=== PATIENT | male | born 1950 | race Caucasian/White ===

== ENCOUNTER 2017-05-03 17:05 | Emergency (ER) | payer BC, MEDICARE ==
[2017-05-03] MEDS ORDERED: HYDROcodone/ACETAMIN 5-325 MG* 1 TAB PO ONE ×3 (17:32→20:25)
--- NOTE | 2017-05-03 17:52 | ED ---
Lower Extremity - HPI Summary HPI Summary: Patient NANDO after right ankle eversion injury while hiking this afternoon. He notes to immediate pain at 8/10, throbbing and does not radiate. Endorses some numbness/tingling. There is ecchymosos throughout the medial ankle with deformity noted. He is unable to move the ankle. Denies pain in the knee or down in to the foot. Health history if non-contributory, denies blood thinners , denies previous injury to the ankle. Denies hitting his head or LOC. Thorough physical exam was performed, focusing on ankle special tests. Pain on palpation over medial aspect and superior aspect of ankle. No pain on palpation over lateral side. Due to patient pain around injury, physical exam was limited. Unable to perform anterior drawer test or talar tilt test d/t pain. Unable to perform Win test, but achilles feels intact and without tenderness. Limited ROM. Dorsiflexion, great toe extension and plantar flexion intact however limited. No pain on palpation over medial or lateral lower extremity. No pain with knee flexion. Pulses intact bilaterally. No temperature change or pallor noted bilaterally. Ecchymosis and swelling noted on medial aspect. No lesion or disruption of skin is seen. Unable to bear weight. Pulses +2 bilaterally and cap refill < 2 sec - History of Current Complaint Chief Complaint: EDExtremityLower Stated Complaint: FALL/RT ANKLE INJURY Time Seen by Provider: 05/03/17 17:14 Hx Obtained From: Patient Mechanism Of Injury: Twisted Onset of Pain: Immediate Onset/Duration: Minutes Severity Initially: Moderate Severity Currently: Moderate Pain Intensity: 5 Pain Scale Used: 0-10 Numeric Timing: Constant Location: Is Discrete @ - right ankle - medial Associated Signs And Symptoms: Positive: Swelling, Redness, Bruising Alleviating Factor(s): Rest Able to Bear Weight: No - Risk Factors Gout Risk Factors: Age Over 40, Male DVT Risk Factors: Negative Septic Arthritis Risk Factor: Negative - Allergies/Home Medications Allergies/Adverse Reactions: Allergies Allergy/AdvReac Type Severity Reaction Status Date / Time No Known Allergies Allergy Verified 05/05/17 10:03 PMH/Surg Hx/FS Hx/Imm Hx Previously Healthy: Yes - Immunization History Hx Pertussis Vaccination: No Immunizations Up to Date: Unable to Obtain/Confirm Infectious Disease History: No Infectious Disease History: Denies: Traveled Outside the [place] in Last 30 Days - Social History Occupation: Employed Full-time Lives: With Family Alcohol Use: Daily Alcohol Amount: couple glasses of wine Hx Substance Use: Yes Substance Use Type: Reports: Marijuana Hx Tobacco Use: No Smoking Status (MU): Never Smoked Tobacco Review of Systems Constitutional: Negative ENT: Negative Cardiovascular: Negative Respiratory: Negative Positive: no symptoms reported, see HPI Positive: Arthralgia - right ankle pain with ecchymosis and swelling Positive: Bruising Neurological: Negative Psychological: Normal All Other Systems Reviewed And Are Negative: Yes Physical Exam Triage Information Reviewed: Yes Vital Signs On Initial Exam: Initial Vitals Temp Pulse Resp BP Pulse Ox 98.7 F 64 16 175/96 100 05/03/17 17:11 05/03/17 17:11 05/03/17 17:11 05/03/17 17:11 05/03/17 17:11 Vital Signs Reviewed: Yes Appearance: Positive: Well-Appearing, Well-Nourished Skin: Positive: Warm, Skin Color Reflects Adequate Perfusion, Other - ecchymosis noted over the medial side of the right ankle Head/Face: Positive: Normal Head/Face Inspection Eyes: Positive: EOMI, ELIDA, Conjunctiva Clear Neck: Positive: Supple, No Lymphadenopathy Respiratory/Lung Sounds: Positive: Clear to Auscultation, Breath Sounds Present Cardiovascular: Positive: Normal, RRR, Pulses are Symmetrical in both Upper and Lower Extremities Musculoskeletal: Positive: Pain @ - right ankle pain without ROM. Negative: Heber Sign Left, Heber Sign Right Diagnostics - Vital Signs Vital Signs Temp Pulse Resp BP Pulse Ox 05/03/17 17:11 98.7 F 64 16 175/96 100 - Laboratory Lab Statement: Any lab studies that have been ordered have been reviewed, and results considered in the medical decision making process. Lower Extremity Course/Dx - Course Course Of Treatment: Based on [place] [facility] Rules, patient sent to imaging. Xray negative for fracture or other acute findings. Soft tissue swelling noted over the lateral aspect of the ankle. Medial and lateral distal lower extremity without pain and x-rays show no widening of the ankle joint regarding low suspicion for Maisonneuve fx. Patient given 2 NORCO in the ED for pain relief. Dr. Cintron made aware and agrees to see patient. The ankle was reduced by dr. cintron and placed in a splint. he is to follow up in 2- [address] cintron. Given oxycodone at home for pain control. He is given crutches and OK for discharge. - Diagnoses Differential Diagnosis/HQI/PQRI: Positive: Fracture (Closed), Fracture (Open), Puncture Wound Provider Diagnoses: Ankle fracture - Physician Notifications Instructed by Provider To: Will See In ED - dr. cintron Discharge - Discharge Plan Condition: Stable Disposition: HOME Prescriptions: oxyCODONE/Acetamin 10/325(NF) [Percocet 10/325 (NF)] 1 tab PO Q6H #16 tab MDD 4 Patient Education Materials: Ankle Fracture (ED) Referrals: Chirag Cintron MD [Medical Doctor] - No Primary Care Phys,NOPCP [Primary Care Provider] - Additional Instructions: Follow up with Dr Cintron Call office tomorrow for appt. you will need to be seen in 4-5 days Percoset given for pain management. If you develop worsening symptoms such as tightness, numbness or tingling or worsening symptoms, return to the ED immediately.
--- NOTE | 2017-05-03 18:17 | RAD ---
Indication: Right ankle injury 3 views of the right ankle demonstrates fracture of the distal fibula with lateral subluxation of the talus and widening of the medial ankle mortise. There is likely a posterior malleolus fracture as well. IMPRESSION: Lateral subluxation of the talus with spiral fracture distal fibula and likely fracture of the posterior malleolus.
[2017-05-03] MEDS ORDERED: Lidocaine 2% 10 ML* VIAL INJ ONE (19:48)
[2017-05-03] MEDS ORDERED: Lidocaine 1% INJ* 10 MG/ML 30 ML SDV ONE (19:52)
--- NOTE | 2017-05-03 20:59 | RAD ---
Indication: Right ankle fracture traumatic. 3 views of the right ankle demonstrates reduction of the previously identified lateral subluxation of the talus. There is reduction of the size of the medial mortise although it is still widened. IMPRESSION: Partial reduction lateral subluxation of the talus.
[2017-05-03 21:08] VITALS: BP 164/93
--- NOTE | 2017-05-03 22:07 | CONS ---
CONSULTATION REPORT: DATE OF CONSULT: 05/03/17 - EMERGENCY DEPT HISTORY OF PRESENT ILLNESS: Phil is a healthy 66-year-old who was hiking with his brother this afternoon when he fell down on an embankment at [facility]. He was rescued by the mulling machine operator and brought in with a closed right tibial fibular fracture dislocation of the right ankle. On examination, he has an intact skin envelope, but some swelling around the ankle with prominence of the medial malleolus. He has a dorsal pulse and insensate foot. His x-ray shows a shifted Wasserman B with 2 cm medial clear space widening. With his consent and under sterile conditions, I injected 5 cc of 1% lidocaine into the ankle and then performed a closed reduction and splinted. He is going to follow up in the orthopedic office in 3 to 4 days. He will need an ORIF, he will be on crutches and pain medication. [id number]/CPS #: [id number] ARDEN
== END 2017-05-03 21:10 | disposition home or self-care (01) ==
LOC: ED 17:05
DX: S82.891A Other fracture of right lower leg, initial encounter for closed fracture (principal); W19.XXXA Unspecified fall, initial encounter; Y93.9 Activity, unspecified; Y92.9 Unspecified place or not applicable
CPT/HCPCS: 96374; 99283; J2001

== ENCOUNTER 2017-05-06 11:55 | Day surgery (SDC) | payer BC, MEDICARE ==
[~2017-05-06 11:55] MED LIST: Buffered Lidocaine 0.9% SYRIN* 5 ML/SYR SYRINGE INTRADERM ONE; Bupivacaine 0.5% SDV PF* 30 ML VIAL ONE; Famotidine IV* 10 MG/ML 2 ML (20 mg) IV ONE; Famotidine IV* 10 MG/ML 2 ML (20 mg) ONE; Morphine INJ* 2 MG/ML 1 ML SYRINGE IV PRN; PROCHLORPERAZINE INJ 5 MG/ML 2 ML VIAL IV PRN; ceFAZolin 2 GM PREMIX (*) 50 ML IVPB ONE; fentaNYL* 50 MCG/ML 2 ML VIAL (100 MCG VIAL) IV PRN; oxyCODONE/Acetamin 5/325 MG* TAB PO PRN
[2017-05-06] MEDS ORDERED: fentaNYL* 50 MCG/ML 2 ML VIAL (100 MCG VIAL) ONE ×2 (13:00→14:49)
[2017-05-06] MEDS ORDERED: Chloroprocaine 2%* 20 ML VIAL ONE (13:00)
[2017-05-06] MEDS ORDERED: Midazolam* 1 MG/ML 2 ML VIAL (2 MG) ONE ×2 (13:00→13:10)
[2017-05-06] MEDS ORDERED: Propofol* 10 MG/ML 20 ML BTL IV PUSH ONE (13:29)
[2017-05-06] MEDS ORDERED: Ketorolac INJ* 30 MG/ML 1 ML VIAL ONE (13:29)
[2017-05-06] MEDS ORDERED: Lidocaine 2% PF * 5 ML VIAL ONE (13:29)
--- NOTE | 2017-05-06 14:15 | RAD ---
HISTORY: Right ankle fracture, trauma COMPARISONS: May 03, 2017 VIEWS: 1, frontal oblique view of the right ankle FINDINGS: BONE DENSITY: Normal. BONES: The patient is status post internal fixation of the distal fibula. There is no hardware failure or osteolysis. JOINTS: There is no arthropathy. ALIGNMENT: There is no dislocation. SOFT TISSUES: Unremarkable. OTHER FINDINGS: None. IMPRESSION: LIMITED SINGLE FRONTAL OBLIQUE VIEW OF THE RIGHT ANKLE DEMONSTRATES DISTAL RIGHT FIBULAR INTERNAL FIXATION
[2017-05-06] MEDS ORDERED: oxyCODONE/Acetamin 5/325 MG* TAB ONE (14:49)
[2017-05-06 15:17] VITALS: BP 161/80
--- NOTE | 2017-05-07 04:20 | OP ---
DATE OF OPERATION: 05/06/17 HEALTH SYSTEM DATE OF : 48 SURGEON: Chirag Houston MD BUTTER FAT TESTER: Charity Edwards PA-C ANESTHESIOLOGIST: Floyd Kilgore MD ANESTHESIA: Spinal PRE-OP DIAGNOSIS: Right fibular fracture, displaced Wasserman B. POST-OP DIAGNOSIS: Right fibular fracture, displaced Wasserman B. OPERATIVE PROCEDURE: Open reduction internal fixation, right fibula. DESCRIPTION OF PROCEDURE: The patient was taken to the operating room. Longitudinal incision made over the lateral malleolus approximately 10 cm. We isolated the oblique fracture and reduced this with a crab claw clamp and then fashioned one third tubular plate 8-hole along the posterolateral fibular side. Back to front cortical screws were placed to stabilize the fracture and the plate. Oblique flat plate x-ray intraoperatively showed satisfactory position of the hardware and the mortise. We then irrigated thoroughly, closing with 2- 0 Vicryl and patrica, and a compression dressing plaster splint applied. [id number] #: [id number] MTDD
== END 2017-05-06 16:25 | disposition home or self-care (01) ==
LOC: OR 11:55
PROVIDERS: ATTEND Orthopaedic Surgery
DX: S82.61XA Displaced fracture of lateral malleolus of right fibula, initial encounter for closed fracture (principal); I10 Essential (primary) hypertension; K21.9 Gastro-esophageal reflux disease without esophagitis; W19.XXXA Unspecified fall, initial encounter; Y93.01 Activity, walking, marching and hiking; Y92.89 Other specified places as the place of occurrence of the external cause
CPT/HCPCS: A9270-GY; C1713; C1776; J0690; J1885; J2250; J2400; J2704; J3010

== ENCOUNTER 2017-10-05 09:47 | Day surgery (SDC) | payer MEDICARE, BC ==
[~2017-10-05 09:47] MED LIST changes: +Acetaminophen TAB* 325 MG PO PRN; -Bupivacaine 0.5% SDV PF* 30 ML VIAL ONE; -Famotidine IV* 10 MG/ML 2 ML (20 mg) IV ONE; -Famotidine IV* 10 MG/ML 2 ML (20 mg) ONE; -Morphine INJ* 2 MG/ML 1 ML SYRINGE IV PRN; -PROCHLORPERAZINE INJ 5 MG/ML 2 ML VIAL IV PRN; -ceFAZolin 2 GM PREMIX (*) 50 ML IVPB ONE; -fentaNYL* 50 MCG/ML 2 ML VIAL (100 MCG VIAL) IV PRN; -oxyCODONE/Acetamin 5/325 MG* TAB PO PRN
[2017-10-05] MEDS ORDERED: Midazolam* 1 MG/ML 2 ML VIAL (2 MG) ONE ×2 (10:49→11:25)
[2017-10-05] MEDS ORDERED: fentaNYL* 50 MCG/ML 2 ML VIAL (100 MCG VIAL) ONE (10:49)
[2017-10-05] MEDS ORDERED: Tetracaine 0.5% OPTH.SOL 4 ML* 1 DROP BTL ONE (11:39)
[2017-10-05] MEDS ORDERED: Phenylephrine 2.5% OPTH.SOL* 2 ML BTL ONE (11:39)
[2017-10-05] MEDS ORDERED: Tropicamide 1% OPTH.SOL* BTL ONE (11:39)
[2017-10-05] MEDS ORDERED: Neomycin/Polymy/Dex OPHTH.OIN* 3.5 GM ONE (11:39)
[2017-10-05] MEDS ORDERED: Lidocaine 1% MPF* 2 ML VIAL ONE (11:39)
[2017-10-05] MEDS ORDERED: Ketorolac 0.5% OPHTH (NF) 0.5 % 5 ML BTL ONE (11:39)
[2017-10-05] MEDS ORDERED: Cyclopentolate 1% OPTH.SOL* 2 ML BTL ONE (11:39)
[2017-10-05 12:18] VITALS: BP 189/85
--- NOTE | 2017-10-06 00:42 | OP ---
DATE OF OPERATION: 10/05/17 - [facility] DATE OF : 48 SURGEON: Jim Fatima MD SMASH HAND: None. ANESTHESIA: Topical with intravenous sedation. PRE-OP DIAGNOSIS: Cataract, left eye with glaucoma. POST-OP DIAGNOSIS: Cataract, left eye with glaucoma. OPERATIVE PROCEDURE: Phacoemulsification and cataract extraction with posterior chamber intraocular implant and iStent implant, left eye. COMPLICATIONS: None. BLOOD LOSS: None. DESCRIPTION OF PROCEDURE: The patient was brought to the operating room and received a small amount of intravenous sedation. A drop of Tetracaine was placed in his left eye. He was prepped and draped in the usual sterile fashion for ophthalmic surgery and attention was directed to the left eye where a speculum was placed. A paracentesis was created at the 5 o'clock position and 0.1 cc of 1% preservative- free Lidocaine was injected into the anterior chamber followed by DisCoVisc. The eye was digitally stabilized while a 2.75 mm keratome was used to create a triplanar clear corneal incision at the 3 o'clock position. A continuous curvilinear capsulorrhexis was created with a cystotome and Utrata forceps. BSS on a cannula was used to hydrodissect the lens from the capsule. Phacoemulsification was performed in a [id number] technique to create 4 fragments, which were removed. Residual cortical material was removed with irrigation and aspiration. DisCoVisc was used to inflate the capsular bag. An [id number] 23.0 diopter lens was folded and inserted into the capsular bag. DisCoVisc was used deepen the anterior chamber and coat the corneal epithelium. The patient had rotated away from the surgeon and the microscope was rotated towards the surgeon. A gonioprism was placed on the surface of the eye. Under direct visualization, an iStent was placed into the eye and inserted into the nasal trabecular meshwork. The iStent mill representative was removed. The gonioprism was removed. The patient's head and the microscope were returned to a neutral position. Irrigation and aspiration was performed to remove all viscoelastic from the eye. BSS on a cannula was used to hydrate the corneal stroma and seal the wound. At the end of the case, the pupil was round. The lens was centered and stable. The iStent was in good position. The eye pressure appeared normal, and the wound was watertight. The speculum was removed and topical Maxitrol ointment was placed on the surface of the eye. The eye was closed, patched, and shielded, and the patient was sent to the recovery room in stable condition with postoperative instructions and followup appointment given. [id number] #: [id number] MTDD
== END 2017-10-05 12:26 | disposition home or self-care (01) ==
LOC: OREAST 09:47
PROVIDERS: ATTEND Ophthalmology
DX: H25.12 Age-related nuclear cataract, left eye (principal); H40.89 Other specified glaucoma; I82.492 Acute embolism and thrombosis of other specified deep vein of left lower extremity; I10 Essential (primary) hypertension; Z79.01 Long term (current) use of anticoagulants; Z87.891 Personal history of nicotine dependence; J45.909 Unspecified asthma, uncomplicated; J45.990 Exercise induced bronchospasm; M25.50 Pain in unspecified joint
CPT/HCPCS: A9270-GY; C1783; J2250; J3010; V2632